=== PATIENT | female | born 1965 | race Caucasian/White ===

== ENCOUNTER 2019-02-08 11:59 | Emergency (ER) | payer OTHER ==
[2019-02-08] MEDS ORDERED: predniSONE TAB* 20 MG PO ONE (12:34)
[2019-02-08] MEDS ORDERED: diPHENhydraMINE PO* 50 MG PO ONE (12:34)
[2019-02-08 13:35] VITALS: BP 117/67
--- NOTE | 2019-02-08 17:09 | ED ---
Skin Complaint - HPI Summary HPI Summary: Patient is a 53-year-old female who presents emergency department for puritic rash to chest 2 days. Pulling weeds outside a few days ago and believes she came into contact with poison nae which she has had before. Patient states rash is located to chest and on neck and feels pain with swallowing. She denies facial edema, shortness of breath. Symptoms are mild in severity. Patient has not taken any antihistamines. No current modifying factors. - History of Current Complaint Chief Complaint: EDAllergicReaction Time Seen by Provider: 02/08/19 12:21 Stated Complaint: THROAT IS CLOSING PER PT Hx Obtained From: Patient Pain Intensity: 0 Pain Scale Used: 0-10 Numeric - Allergy/Home Medications Allergies/Adverse Reactions: Allergies Allergy/AdvReac Type Severity Reaction Status Date / Time Penicillins Allergy Hives Verified 02/08/19 12:02 PMH/Surg Hx/FS Hx/Imm Hx Previously Healthy: Yes Endocrine/Hematology History: Denies: Hx Diabetes Cardiovascular History: Denies: Hx Hypertension, Hx Pacemaker/ICD Respiratory History: Denies: Hx Asthma GI History: Denies: Hx Cirrhosis History: Denies: Hx Renal Disease Sensory History: Denies: Hx Hearing Aid Neurological History: Reports: Other Neuro Impairments/Disorders - HAS DISC PROBLEM IN LOWER BACK Psychiatric History: Denies: Hx Panic Disorder - Cancer History Hx Chemotherapy: No Hx Radiation Therapy: No - Surgical History Surgery Procedure, Year, and Place: RT ELBOW ARTHROSCOPY. LSP SURGERY L5-S1 FUSION WITH PLATE AND S 06/18 AT [facility] - Immunization History Immunizations Up to Date: Yes Infectious Disease History: No Infectious Disease History: Denies: Hx Hepatitis, Traveled Outside the [place] in Last 30 Days - Family History Known Family History: Positive: Non-Contributory - Social History Occupation: Employed Full-time Lives: With Family Alcohol Use: Occasionally Substance Use Type: Reports: None Smoking Status (MU): Never Smoked Tobacco Review of Systems Positive: Other - pain with swallowing. Cardiovascular: Negative Respiratory: Negative Negative: Shortness Of Breath Positive: Other - rash on chest. Neurological: Negative All Other Systems Reviewed And Are Negative: Yes Physical Exam Triage Information Reviewed: Yes Vital Signs On Initial Exam: Initial Vitals Temp Pulse Resp BP Pulse Ox 98.1 F 61 18 131/68 99 02/08/19 12:00 02/08/19 12:00 02/08/19 12:00 02/08/19 12:00 02/08/19 12:00 Vital Signs Reviewed: Yes Appearance: Positive: Well-Appearing - Pt. sitting on bed in NAD. Skin: Positive: Warm, Dry, Other - Erythematous slightly papular rash to chest. Small vesicles. No urticaria. Head/Face: Positive: Normal Head/Face Inspection, Other - No facial edema. Eyes: Positive: Normal, EOMI, MNOCHO ENT: Positive: Other - Oral pharynx patent. No mouth or tongue edema. Neck: Positive: Supple, Nontender Respiratory/Lung Sounds: Positive: Clear to Auscultation, Breath Sounds Present. Negative: Wheezes Cardiovascular: Positive: Normal, RRR Neurological: Positive: Normal, CN Intact II-III Diagnostics - Vital Signs Vital Signs Temp Pulse Resp BP Pulse Ox 02/08/19 13:34 98.2 F 50 16 117/67 99 02/08/19 12:00 98.1 F 61 18 131/68 99 - Laboratory Lab Statement: Any lab studies that have been ordered have been reviewed, and results considered in the medical decision making process. Course/Dx - Course Course Of Treatment: Patient presenting with likely dermatitis secondary to poison nae. We'll place her on a 12 day course of tapering prednisone. Patient given his prednisone and Benadryl ER. Advised to apply topical over-the -counter ointments thinking continue Benadryl or second-generation antihistamine for itching if needed. Close follow-up with PCP and will return to the ER symptoms change or worsen. Patient understands and agrees with plan. - Differential Diagnoses - Skin Complaint Differential Diagnoses: Anaphylaxis, Contact Dermatitis, Eczema, Poison Nae, Poison [place], Scabies - Diagnoses Provider Diagnoses: Poison nae dermatitis Discharge ED - Sign-Out/Discharge Documenting (check all that apply): Patient Departure Patient Received Moderate/Deep Sedation with Procedure: No - Discharge Plan Condition: Good Disposition: HOME Prescriptions: predniSONE TAB* [Deltasone 10 MG TAB*] 10 mg PO DAILY #42 tab Patient Education Materials: Poison Nae (ED) Referrals: Sreekanth Thomas MD [Primary Care Provider] - Additional Instructions: Follow up with PCP on Monday Take prednisone as directed Can take benadryl as directed for itching Apply an over the counter poison nae cream such as Ivarest Return to ER if symptoms change or worsen - Billing Disposition and Condition Condition: GOOD Disposition: Home
== END 2019-02-08 13:34 | disposition home or self-care (01) ==
LOC: ED 11:59
DX: L23.7 Allergic contact dermatitis due to plants, except food (principal); Z79.899 Other long term (current) drug therapy; Z88.0 Allergy status to penicillin
CPT/HCPCS: 99282; A9270-GY; J7512

== ENCOUNTER 2022-07-05 08:40 | Observation (INO) ==
[2022-07-05] MEDS ORDERED: NS 0.9% 1000 ml BAG 1,000 ML IV ONE (10:12)
[2022-07-05] MEDS ORDERED: Ondansetron 4 mg VIAL 2 MG/ML 2 ml VIAL IV ONE (10:14)
[2022-07-05 10:37] LABS: ABS Eosinophils 0.1 10^3/ul (0-0.6); ABS Monocytes 0.3 10^3/ul (0-0.8); ABS Neutrophils 4.6 10^3/ul (1.5-7.7); Eosinophil % 1.9 %; Hematocrit 41 % (35-47); Hemoglobin 13.4 g/dL (12.0-16.0); Lymphocyte % 28.4 %; Mean Corpuscular HGB Conc 33 g/dL (31-36); Mean Corpuscular Hemoglobin 29 pg (27-31); Mean Corpuscular Volume 87 fL (80-97); Mean Platelet Volume 9.1 fL (7.4-10.4); Nucleated Red Blood Cells % 0.1; Platelet Count 280 10^3/uL (150-450); Red Blood Count 4.64 10^6 /uL (3.70-4.87); Red Cell Distribution Width 14 % (10-15); White Blood Count 7.2 10^3/uL (3.5-10.8)
[2022-07-05 11:00] LABS: Activated Partial Thrombo Time 30.8 seconds (26.0-38.0); INR 0.99 (0.88-1.18)
[2022-07-05] MEDS ORDERED: NS 0.9% 1000 ml BAG 1,000 ML IV SCH (11:30)
[2022-07-05 11:32] LABS: Albumin 4.5 g/dL (3.2-5.2); Calcium 9.6 mg/dL (8.6-10.3); Magnesium 1.9 mg/dL (1.9-2.7); Potassium 4.3 mmol/L (3.5-5.0); Total Bilirubin 0.3 mg/dL (0.2-1.0)
[2022-07-05 11:38] LABS: Albumin/Globulin Ratio 1.5 (1-3); Creatinine, Serum 0.63 mg/dL (0.51-0.95); HDL Cholesterol 58.9 mg/dL; Total Protein 7.5 g/dL (6.4-8.9); eGFR CKD-EPI 104.7 (>60)
[2022-07-05 14:16] LABS: C Reactive Protein 2.34 mg/L (<8.01)
[2022-07-05 15:38] LABS: Erythrocyte Sed Rate 34 mm/Hr (0-29)
[2022-07-05] MEDS ORDERED: Acetaminophen IV 1 GM/100ML 1,000 MG/100 ML BAG IV PRN (15:39)
[2022-07-05] MEDS ORDERED: Gadoteridol (CONTRAST) 279.3 MG/ML 10 ML IV ONE (16:52)
[2022-07-05 22:26] LABS: Urine Appearance Clear; Urine Bilirubin Negative (Negative); Urine Blood 1+ (Negative); Urine Color Yellow; Urine Glucose Negative (Negative); Urine Ketones Negative (Negative); Urine Nitrite Negative (Negative); Urine Protein Negative (Negative); Urine Specific Gravity 1.017 (1.002-1.030); Urine Urobilinogen Negative (Negative)
[2022-07-05 22:35] LABS: Urine Bacteria Absent (Absent); Urine Red Blood Cell Trace(0-2/hpf) (Absent); Urine Squamous Epithelial Cell Present (Absent); Urine White Blood Cell Trace(0-5/hpf) (Absent)
[2022-07-06 06:09] LABS: ABS Eosinophils 0.2 10^3/ul (0-0.6); ABS Lymphocytes 2.1 10^3/ul (1.0-4.8); ABS Monocytes 0.3 10^3/ul (0-0.8); ABS Neutrophils 3.2 10^3/ul (1.5-7.7); Eosinophil % 2.9 %; Hematocrit 39 % (35-47); Hemoglobin 12.8 g/dL (12.0-16.0); Lymphocyte % 36.1 %; Mean Corpuscular HGB Conc 33 g/dL (31-36); Mean Corpuscular Hemoglobin 29 pg (27-31); Mean Corpuscular Volume 89 fL (80-97); Mean Platelet Volume 9.4 fL (7.4-10.4); Nucleated Red Blood Cells % 0.1; Platelet Count 243 10^3/uL (150-450); Red Blood Count 4.35 10^6 /uL (3.70-4.87); Red Cell Distribution Width 15 % (10-15); White Blood Count 5.8 10^3/uL (3.5-10.8)
[2022-07-06 06:41] LABS: Calcium 9.3 mg/dL (8.6-10.3); Creatinine, Serum 0.61 mg/dL (0.51-0.95); Potassium 4.9 mmol/L (3.5-5.0); eGFR CKD-EPI 105.5 (>60)
[2022-07-06] MEDS ORDERED: Aspirin EC 81 mg TAB.EC (enteric coated) PO SCH (11:00)
[2022-07-06] MEDS ORDERED: NS 0.9% 1000 ml BAG 1,000 ML IV ONE (12:48)
[2022-07-06] MEDS ORDERED: Iohexol 350 (CONTRAST) 500 ML MDV IV ONE (13:10)
[2022-07-06 15:55] VITALS: BP 94/62
[2022-07-06 17:28] LABS: TSH Ultra Thyroid Stim Horm 0.35 mcIU/mL (0.34-5.60)
[2022-07-08 17:21] LABS: Anaplasma phagocytophilum Negative (Negative); B. miyamotoi PCR, B Negative (Negative); Babesia divergens/MO-1 Negative (Negative); Babesia ducani Negative (Negative); Ehrlichia chaffeensis Negative (Negative); Ehrlichia ewingii/canis Negative (Negative); Ehrlichia muris eauclairensis Negative (Negative)
== END 2022-07-06 16:31 | disposition home or self-care (01) ==
LOC: ED 08:40 → INTOOBSV 15:36 → EDHOLD 15:36 → SUATTDRO 15:36 → EDHOLD 18:14 → MED 18:59
PROVIDERS: ADMIT Internal Medicine; ATTEND Hospitalist